=== PATIENT | female | born 1975 | race Asian ===

== ENCOUNTER 2020-09-27 10:37 | Emergency (ER) | payer BC ==
[~2020-09-27] VITALS: Ht 157.5 cm; Wt 66.2 kg
--- NOTE | 2020-09-27 11:08 | NUR ---
PT C/O SUBSTERNAL CP YESTERDAY @ 1230, NON RADIATING. AT TIME PAIN 02/16, PT PULLED OVER WHILE DRIVE, TOOK DEEP BREATHS TO RELAX AND PAIN DECREASED. HX OF SAME X2 SINCE JUL 2019. NO +TROP ANY OF THESE TIMES. PT TAKES NOT MEDS AT HOME, INCREASED STRESS LATELY. PT CONNECTED TO MONITORING. CALL LIGHT IN REACH. REPORT GIVEN TO PRIMARY RN.
[2020-09-27] MEDS ORDERED: ASPIRIN 81 MG TABLET CHEW ONE (11:40)
--- NOTE | 2020-09-27 11:54 | NUR ---
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 PT AWAKE AND ALERT, RESPONDING APPROPRIATELY..
[2020-09-27] MEDS ORDERED: ASPIRIN 81 MG TABLET CHEW PO ONE (12:00)
--- NOTE | 2020-09-27 12:00 | NUR ---
[facility] HAND-OFF REPORT TO STERLING FERREIRA.
[2020-09-27 12:06] LABS: BASOPHILS % (AUTO) 1 % (0-1); EOSINOPHILS % (AUTO) 4 % (1-7); LYMPHOCYTES % (AUTO) 24 % (22-44); MD NO; MEAN CORPUSCULAR HEMOGLOBIN 29.7 pg (27.0-34.8); MEAN CORPUSCULAR HGB CONC 33.6 g/dL (32.4-35.8); MEAN PLATELET VOLUME 8.3 fL (7.4-10.4); MONOCYTES % (AUTO) 6 % (2-9); NEUTROPHILS % (AUTO) 65 % (42-75); PLATELET COUNT 295 x10^3/uL (130-400); RED BLOOD COUNT 4.89 x10^6/uL (3.82-5.3); RED CELL DISTRIBUTION WIDTH 12.9 % (9.6-15.2)
[2020-09-27 12:17] LABS: ALANINE AMINOTRANSFERASE 39 U/L (12-78); ALBUMIN 4.4 g/dL (3.4-5.0); ANION GAP 6 mmol/L (5-15); CALCIUM 9.3 mg/dL (8.5-10.1); CHLORIDE 109 mmol/L (98-107); CREATININE 0.75 mg/dL (0.55-1.02)
[2020-09-27 12:21] LABS: ALKALINE PHOSPHATASE 100 U/L (45-117); BILIRUBIN,TOTAL 0.3 mg/dL (0.2-1.0); TOTAL PROTEIN 8.5 g/dL (6.4-8.2); TROPONIN I < 0.015 ng/mL (0.000-0.045)
[2020-09-27 12:53] VITALS: BP 134/81
== END 2020-09-27 13:01 | disposition home or self-care (01) ==
LOC: ED 12:50
DX: R07.89 Other chest pain (principal); Z90.710 Acquired absence of both cervix and uterus
CPT/HCPCS: 36415; 71045; 80053; 84484; 85025; 93005; 99285